=== PATIENT | male | born 1985 | race Caucasian/White ===

== ENCOUNTER → 2023-06-04 06:26 | Day surgery (SDC) | payer OTHER, SELFPAY | LOC: GI 06:26 | PROVIDERS: ATTENDING PHYSICIAN Surgery | DX: Z12.11 Encounter for screening for malignant neoplasm of colon (principal); K64.8 Other hemorrhoids; K64.4 Residual hemorrhoidal skin tags; K63.5 Polyp of colon | CPT/HCPCS: 45380; 88305 ==